=== PATIENT | female | born 1985 | race American Indian/Alaskan Native ===

== ENCOUNTER 2020-09-17 09:30 | Outpatient (CLI) | payer OTHER ==
[2020-09-17] MEDS ORDERED: LACTATED RINGERS 500 ML IV ONE (10:25)
[2020-09-17 10:38] VITALS: BP 107/57
[2020-09-17] MEDS ORDERED: TERBUTALINE 1 MG/1 ML INJ IVP NR (11:33)
[2020-09-17 11:36] LABS: Bacteria,Urine 4+ /HPF (Negative); Bilirubin,Urine NEG (Negative); Blood,Urine NEG (Negative); Color,Urine Yellow (Yellow); Mucus,Urine 3+ /HPF
== END 2020-09-17 14:20 | disposition home or self-care (01) ==
LOC: TRG 09:30 → APU 09:30 → TRG 14:20
DX: O26.893 Other specified pregnancy related conditions, third trimester (principal); R10.9 Unspecified abdominal pain; Z3A.32 32 weeks gestation of pregnancy
CPT/HCPCS: 59025; 81001; 96360; J7120

== ENCOUNTER 2020-11-04 08:29 | Inpatient (IN) | payer OTHER ==
--- NOTE | 2020-11-04 08:45 | History and Physical Report ---
History of Present Illness Date of examination: 11/04/20 Date of admission: 11/04/20 08:29 Chief complaint: elective repeat section multiparity, desires permanent sterilization [facility] Past History Past Medical History: no pertinent history, other (GDM) Past Surgical History: section Social history: no significant social history - Obstetrical History Expected Date of Delivery: 11/06/20 Actual Gestation: 39 Week(s) 5 Day(s) : 2 Para: 1 Medications and Allergies Allergies Allergy/AdvReac Type Severity Reaction Status Date / Time No Known Allergies Allergy Verified 04/10/13 00:33 Home Medications Medication Instructions Recorded Confirmed Last Taken Type Ferrous Sulfate [Iron Supplement] 1 tab PO BID 11/03/13 12/26/13 11/03/13 History 09 Vits96/Iron Fum/Folic 1 each PO QDAY 11/03/13 12/26/13 11/03/13 History [ Tablet] 0900 Ferrous Sulfate [Feosol 325 MG tab] 325 mg PO TID #90 tablet 12/28/13 Unknown Rx Ibuprofen [Motrin 800 MG tab] 800 mg PO Q8H PRN #90 tablet 12/28/13 Unknown Rx oxyCODONE /ACETAMINOPHEN [Percocet 1 tab PO Q6HR PRN #30 tablet 12/28/13 Unknown Rx 5/325 mg] Ibuprofen [Motrin] 600 mg PO Q8H PRN #60 tablet 11/04/20 Unknown Rx oxyCODONE /ACETAMINOPHEN [Percocet 1 tab PO Q6HR PRN #20 tablet 11/04/20 Unknown Rx 5/325] Active Meds: Active Medications Citric Acid/Sodium Citrate (Bicitra Oral Liqd 30ml) 30 ml PO ONCE ONE Stop: 11/04/20 08:40 Famotidine (Famotidine 20 Mg/2 Ml Inj) 20 mg IV ONCE ONE Stop: 11/04/20 08:40 Lactated Ringer's (Lactated Ringers) 1,000 mls @ 2,250 mls/hr IV PREOP CARMEN Stop: 11/05/20 09:12 Oxytocin/Sodium Chloride (Pitocin/Ns 30 Unit/500ml) 30 units in 500 mls @ 0 mls/hr IV TITR CARMEN; Protocol Metoclopramide HCl (Metoclopramide 10 Mg/2 Ml Inj) 10 mg IV ONCE ONE Stop: 11/04/20 08:40 Review of Systems All systems: negative (no OB complaint) - Physical Exam Breasts: Positive: deferred Cardiovascular: Regular rate Lungs: Positive: Clear to auscultation Abdomen: Positive: normal appearance, soft, normal bowel sounds Genitourinary (Female): Positive: normal external genitalia, normal perenium Vulva: both: normal Vagina: Positive: normal moisture Uterus: Positive: enlarged Anus/Rectum: Positive: normal perianal skin Extremities: Positive: normal Deep Tendon Reflex Grade: Normal +2 - Obstetrical FHR: category 1 Results Result Diagrams: 11/04/20 09:40 All other labs normal. Assessment and Plan Repeat section Multiparity Plan: NPO, cooperative education coordinator to OR for procedure Unique Villatoro MD
[2020-11-04] MEDS ORDERED: FAMOTIDINE 20 MG/2 ML INJ IV NR (09:00)
[2020-11-04] MEDS ORDERED: OXYTOCIN DRIP 30 UNITS/500 ML BAG IV SCH (09:00)
[2020-11-04] MEDS ORDERED: METOCLOPRAMIDE 10 MG/2 ML INJ IV NR (09:00)
[2020-11-04] MEDS ORDERED: BICITRA ORAL LIQD 30ML PO NR (09:00)
--- NOTE | 2020-11-04 09:37 | Anesthesia Day of Surgery ---
Anesthesia Day of Surgery - Day of Surgery Patient Examined: Yes Patient H&P Reviewed: Yes Patient is NPO: Yes Beta Blockers: No Cardiac Clearance: No Pulmonary Clearance: No Ruddy's Test: Negative
[2020-11-04] MEDS ORDERED: ceFAZolin/Water 2 GM/20 ML 2 GM/20 ML SYRINGE IV ONE (09:38)
--- NOTE | 2020-11-04 09:38 | Anesthesia Consultation ---
Anesthesia Consult and Med Hx Date of service: 11/04/20 - Airway Anesthetic Teeth Evaluation: Poor ROM Head & Neck: Adequate Mental/Hyoid Distance: Adequate Mallampati Class: Class II Intubation Access Assessment: Probably Good - Pulmonary Exam CTA: Yes - Cardiac Exam Cardiac Exam: RRR - Pre-Operative Health Status ASA Pre-Surgery Classification: ASA3 Proposed Anesthetic Plan: Spinal - Pulmonary Hx Smoking: No Hx Asthma: No Hx Respiratory Symptoms: No SOB: No COPD: No Home Oxygen Therapy: No Hx Pneumonia: No Hx Sleep Apnea: No - Cardiovascular System Hx Hypertension: No Hx Coronary Artery Disease: No Hx Heart Attack/AMI: No Hx Angina: No Hx Percutaneous Transluminal Coronary Angioplasty (PTCA): No Hx Cardia Arrhythmia: No Hx Pacemaker: No Hx Internal Defibrillator: No Hx Valvular Heart Disease: No Hx Heart Murmur: No Hx Peripheral Vascular Disease: No - Central Nervous System Hx Neuromuscular Disorder: No Hx Seizures: No CVA: No Hx Back Pain: Yes Hx Psychiatric Problems: No - Gastrointestinal Hx Ulcer: No Hx Gastroesophageal Reflux Disease: No - Endocrine Hx Renal Disease: No Hx End Stage Renal Disease: No Hx Cirrhosis: No Hx Liver Disease: No Hx Insulin Dependent Diabetes: No Hx Non-Insulin Dependent Diabetes: Yes (Gestational) Hx Thyroid Disease: No Hx Hypothyroidism: No Hx Hyperthyroidism: No - Hematic Hx Anemia: Yes (this , taking iron) Hx Sickle Cell Disease: No - Other Systems Hx Alcohol Use: No Hx Substance Use: No Hx Cancer: No Hx Obesity: Yes
[2020-11-04 09:52] LABS: Basophils % (Auto) 0.4 % (0.0-1.8); Eosinophils % (Auto) 0.5 % (0.0-4.3); Hematocrit 29.9 % (30.3-42.9); Hemoglobin 9.9 gm/dl (10.1-14.3); Lymphocytes # (Auto) 1.4 K/mm3 (1.2-5.4); Lymphocytes % (Auto) 25.8 % (13.4-35.0); Mean Corpuscular HGB Conc 33 % (30-34); Mean Corpuscular Volume 85 fl (79-97); Monocytes # (Auto) 0.5 K/mm3 (0.0-0.8); Monocytes % (Auto) 9.5 % (0.0-7.3); Platelet Count 213 K/mm3 (140-440); Red Blood Count 3.53 M/mm3 (3.65-5.03); Red Cell Distribution Width 14.4 % (13.2-15.2)
[2020-11-04] MEDS ORDERED: ONDANSETRON 4 MG/2 ML INJ ONE (09:53)
[2020-11-04] MEDS: LACTATED RINGERS 1,000 ML IV SCH ×2 (10:00→10:32)
[2020-11-04] MEDS ORDERED: SODIUM CHLORIDE 0.9% 500 ML 500 ML IV SCH (11:00)
--- NOTE | 2020-11-04 11:46 | Procedure Note ---
OB Delivery Note - Delivery Date of Delivery: 11/04/20 Surgeon: JESSICA ACOSTA - Section Preop diagnosis: desires sterilization Postop diagnosis: same section procedure: repeat low transverse, bilateral tubal ligation Disposition: PACU Complications: none Narrative: Preop diagnosis: IUP at 39+weeks, previous sectionx1, multiparity desires surgical sterilization Postop diagnosis: Same Procedure: Repeat low transverse section via Pfannenstiel incision with Modfied [place] Bilateral Tubal ligation Surgeon: Dr. Jessica Acosta Anesthesia spinal Complications none EBL 800 ml IV fluids 1100 mL Urine output 200 mL, clear Drains [place] to gravity Findings: Viable male with weight 3202gms and 9/9, normal uterus tubes and ovaries bilaterally Procedure: Patient was consented in OB triage, taken to the operating room where she received excellent spinal anesthesia. She was then placed in the dorsal supine position with a leftward tilt. The abdomen was prepped and draped in a sterile fashion, and a timeout was verified. Adequate anesthesia was confirmed prior to the skin incision. A Pfannenstiel skin incision was made with a scalpel taken down to the underlying structures and the fascia was incised in the midline. The incision was extended laterally with curved Judd scissors, the superior and inferior aspects of the fascial incisions were grasped with Sae clamps and the rectus muscles dissected sharply. The abdomen was entered bluntly in the midline carried down inferiorly with good visualization of the bladder. The uterine incision was then made sharply with a scalpel. The inferior and superior aspect of the uterine incisions were extended bluntly, the baby's head was delivered atraumatically. The remainder of the delivery was uncomplicated, no nuchal cord. The cord was clamped and cut and baby handed to waiting NICU team. An intact placenta with three-vessel cord delivered manually. The uterus was then cleared of all clots and debris and the uterus exteriorized. The uterine incision was closed in 2 layers of 0 vicryl with excellent hemostasis. Attention then turned to the fallopian tubes which were suture ligated with )-Chromic in the usual fashion with excellent hemostasis. The abdomen was then irrigated with warm normal saline and the uterus placed back into the abdomen atraumatically. A second look at the uterine incision assured hemostasis. The peritoneum was closed with 3-0 Vicryl, the rectus muscles approximated with 3-0 Vicryl, and the fascia closed with 0 Vicryl in the usual fashion. The subcuticular structures were closed with interrupted sutures of 3-0 Vicryl and the skin closed with 4-0 Monocryl. A pr essure dressing was applied. All sponge needle and instrument counts were correct x2. There were no complications. Mom and baby stable to PACU. EBL 800 mL Unique Acosta MD
[2020-11-04] MEDS ORDERED: WATER FOR IRRIG STERILE 1,500 ML BOTTLE IR ONE (11:52)
[2020-11-04] MEDS ORDERED: SODIUM CHLORIDE 0.9% IRR 1,500 ML BOTTLE IR ONE (11:52)
[2020-11-04] MEDS ORDERED: dexAMETHasone 20 MG/5 ML VIAL ONE (12:19)
[2020-11-04] MEDS ORDERED: KETOROLAC 30 MG/1 ML INJ ONE (12:19)
[2020-11-04] MEDS ORDERED: BUPIVACAINE/PF (0.25%) 2.5 MG/ML 30 ML VIAL INFILTRATI ONE (12:19)
--- NOTE | 2020-11-04 13:18 | Progress Note ---
Spinal Anesthesia Block - Spinal Anesthesia Block Start Time: 11:30 Stop Time: 11:33 Performed by:: LIANNA GRIFFITH Procedure: Patient IDed, H&P reviewed, all questions and concerns were answered, and consent was signed. Timeout was performed at bedside. Patient in sitting position. Sterile prep and drape was performed. [3] ml of 1% lidocaine skin wheal at L[3]- L [4]. Needle introducer advanced. 25 gauge spinal needle advanced. Clear, free flowing CSF. negative blood, negative paresthesia. Spinal dose given. All needles removed. Patient tolerated procedure.
--- NOTE | 2020-11-04 13:20 | Progress Note ---
Regional Anesthesia Block - Regional Anesthesia Block Start Time: 13:18 Stop Time: 13:20 Performed By:: LIANNA GRIFFITH Procedure: Patient consented for TAP block for post surgical pain management. Patient identified, monitors placed, and time out performed. TAP identified bilaterally via ultrasound. Skin prepped bilaterally with [chlorhexidine] and [22g stimuplex] needle advanced to the TAP. [Marcaine 0.25% 35ml] injected under ultrasound guidance on the [left] side. [Marcaine 0.25% 35ml] injected under ultrasound guidance on the [right] side. Negative aspiration every 5mL, No change in heart rate or rhythm. Patient tolerated the procedure well. No apparent complications seen.
[2020-11-04] MEDS ORDERED: MORPHINE 2 MG/1 ML INJ IV PRN ×2 (13:30→14:30)
[2020-11-04] MEDS ORDERED: ePHEDrine SULFATE 50 MG/1 ML INJ IV PRN (14:00)
[2020-11-04] MEDS ORDERED: KETOROLAC 30 MG/1 ML INJ IV PRN ×2 (14:00→14:30)
[2020-11-04] MEDS ORDERED: MORPHINE 4 MG/1 ML INJ IV PRN (14:30)
[2020-11-04] MEDS ORDERED: WITCH HAZEL/ GLYCERIN PAD TP PRN (14:30)
[2020-11-04] MEDS ORDERED: IBUPROFEN 600 MG TAB PO PRN (14:30)
[2020-11-04] MEDS ORDERED: NALOXONE 0.4 MG/1 ML INJ IV PRN (15:00)
[2020-11-04] MEDS ORDERED: LANOLIN/ZINC/DIMETHICONE (LANSINOH) 7 GM TP PRN (15:00)
--- NOTE | 2020-11-04 17:22 | Post Anesthesia Evaluation ---
- Post Anesthesia Evaluation Patient Participated: Yes Airway Patent: Yes Stable Respiratory Function: Yes Nausea/Vomiting: No Temp > 96.8F: Yes Pain Manageable: Yes Adequeate Hydration: Yes Anesthesia Complications: No Block Receding Appropriately: Yes Patient on Ventilator: No
[2020-11-05 03:40] LABS: Hematocrit 26.4 % (30.3-42.9); Hemoglobin 8.7 gm/dl (10.1-14.3)
[2020-11-05] MEDS: HYDROcodone/ACETAMINOPHEN 5-325 MG TAB PO PRN ×2 (08:30→18:07)
--- NOTE | 2020-11-05 10:01 | Progress Note ---
Assessment and Plan A: S/P Repeat LTCS/BTL Asymptomatic anemia P: Continue routine pp orders Fe prescribed Advise foods high in Fe Encourage ambulation D/C home within 24-48 hrs Subjective - Subjective Date of service: 11/05/20 Principal diagnosis: S/P repeat LTCS Patient reports: appetite normal, voiding normally, pain well controlled, flatus, ambulating normally, other (DENIES SOB, FATIGUE OR WEAKNESS) Objective - Vital Signs Latest vital signs: Vital Signs Temp Pulse Resp BP BP Pulse Ox Pulse Ox 11/05/20 08:20 98.0 F 84 18 95/64 100 11/05/20 07:50 100 11/05/20 04:36 98.1 F 74 18 93/50 99 11/05/20 01:59 97.9 F 74 18 101/63 100 11/04/20 22:41 100 11/04/20 21:45 97.6 F 83 18 101/62 97 11/04/20 17:40 100 11/04/20 14:50 98.3 F 81 20 101/63 100 11/04/20 14:10 97.7 F 80 18 100/63 97 11/04/20 14:00 77 17 97/57 97 11/04/20 13:45 78 15 90/56 97 11/04/20 13:30 82 16 88/50 97 11/04/20 13:16 83 16 102/78 97 11/04/20 13:12 84 16 81/63 97 11/04/20 13:08 98 F 82 16 113/69 97 11/04/20 11:05 99 H 100 11/04/20 11:00 97 H 100 11/04/20 10:55 91 H 100 11/04/20 10:50 99 H 100 11/04/20 10:43 89 100 11/04/20 10:38 93 H 100 11/04/20 10:33 88 100 11/04/20 10:32 95 H 105/61 11/04/20 10:28 95 H 100 11/04/20 10:23 97 H 100 11/04/20 10:18 91 H 100 11/04/20 10:15 100 11/04/20 10:13 94 H 100 11/04/20 10:08 95 H 100 11/04/20 10:03 91 H 100 11/04/20 10:02 98.5 F 91 H 18 107/68 100 Intake and Output 11/04/20 11/05/20 11/05/20 22:59 06:59 14:59 Intake Total 240 240 Output Total 600 1450 Balance -360 -1210 Intake: Intake, Free Water 240 240 Output: Urine 600 1450 Indwelling Catheter 600 1000 Void 450 Other: Total, Output Amount 600 300 - Exam Breasts: Present: normal Abdomen: Present: normal appearance, soft, normal bowel sounds Vulva: both: normal Uterus: Present: normal, firm, fundal height below umbilicus Extremities: Present: normal Incision: Present: normal, dry, intact, dressed - Labs Labs: Abnormal lab results 11/04/20 11/05/20 Range/Units 09:40 03:18 Hgb 8.7 L (10.1-14.3) gm/dl Hct 26.4 L (30.3-42.9) % Crossmatch See Detail
[2020-11-05] MEDS: IBUPROFEN 800 MG TAB PO PRN ×2 (12:00→21:54)
[2020-11-05] MEDS ORDERED: ceFAZolin/STERILE WATER 2 GM/20 ML SYRINGE IV NR (12:00)
[2020-11-05] MEDS: FERROUS SULFATE 325 MG TAB PO SCH ×2 (12:34→21:55)
--- NOTE | 2020-11-06 10:04 | Progress Note ---
Assessment and Plan A: S/P Repeat LTCS/BTL P: D/C home per pt's request Subjective - Subjective Date of service: 11/06/20 Principal diagnosis: Repeat LTCS/BTL Patient reports: appetite normal, voiding normally, pain well controlled, flatus, ambulating normally [place]: doing well, bottle feeding Objective - Vital Signs Latest vital signs: Vital Signs Temp Pulse Resp BP BP Pulse Ox Pulse Ox 11/06/20 08:09 98.1 F 82 16 102/61 100 11/06/20 00:30 98.6 F 74 16 102/78 11/05/20 20:29 97.4 F L 84 18 100/58 99 11/05/20 20:00 100 11/05/20 17:11 98.1 F 85 18 101/62 98 Intake and Output 11/05/20 11/06/20 11/06/20 22:59 06:59 14:59 Intake Total 300 200 240 Balance 300 200 240 Intake: Oral 200 240 Intake, Free Water 300 Other: Total, Intake Amount 200 240 # Voids Void 1 1 1 - Exam Breasts: Present: normal Abdomen: Present: normal appearance, soft, normal bowel sounds Vulva: both: normal Uterus: Present: normal, firm, fundal height below umbilicus Extremities: Present: normal Incision: Present: normal, dry, intact
--- NOTE | 2020-11-06 10:07 | Discharge Summary ---
Providers - Providers Date of Admission: 11/04/20 08:29 Date of discharge: 11/06/20 Attending physician: JESSICA ACOSTA MD Primary care physician: MAK DALTON MD Hospitalization Reason for admission: section Delivery: Procedure: repeat low transverse Episiotomy: none Laceration: none Incision: normal, dry, intact Other procedures: none complications: other (Taking Fe for anemia) Discharge diagnosis: IUP at term delivered baby: male Hospital course: Pt was admitted to [facility] for a repeat LTCS. She had a LTCS and was started on fe pp for asymptomatic anemia. See H&P, delivery summary, and pp notes. Condition at discharge: Stable Disposition: 01 HOME / SELF CARE / HOMELESS Plan - Discharge Medications Prescriptions: Ibuprofen [Motrin] 600 mg PO Q8H PRN #60 tablet PRN Reason: Pain oxyCODONE /ACETAMINOPHEN [Percocet 5/325] 1 tab PO Q6HR PRN #20 tablet PRN Reason: Pain - Provider Discharge Summary Activity: routine, no sex for 6 weeks, no heavy lifting 4 weeks, no strenuous exercise Diet: other (high Fe diet) Instructions: routine Additional instructions: [] Smoking cessation referral if applicable(refer to patient education folder for contact #) [] Refer to [facility]'s [facility] Booklet Call your doctor immediately for: * Fever > 100.5 * Heavy vaginal bleeding ( >1 pad per hour) * Severe persistent headache * Shortness of breath * Reddened, hot, painful area to leg or breast * Drainage or odor from incision. * Keep incision clean and dry at all times and follow doctor's instructions regarding bathing/showering - Follow up plan Follow up: MAK DALTON MD [Primary Care Provider] - 14 Days
[2020-11-06] MEDS: IBUPROFEN 800 MG TAB PO PRN ×2 (10:20→15:13)
[2020-11-06] MEDS: FERROUS SULFATE 325 MG TAB PO SCH (10:20)
[2020-11-06 16:17] VITALS: BP 109/61
== END 2020-11-06 16:39 | disposition home or self-care (01) | DRG 784 ==
LOC: APU 08:29 → OB 15:24
PROVIDERS: ADMIT Obstetrics & Gynecology; ATTEND Obstetrics & Gynecology
PROC: 0UB70ZZ Excision of Bilateral Fallopian Tubes, Open Approach (ICD-10-PCS; principal; 2020-11-04)
PROC: 10D00Z1 Extraction of Products of Conception, Low, Open Approach (ICD-10-PCS; 2020-11-04)
PROC: 3E0T3BZ Introduction of Anesthetic Agent into Peripheral Nerves and Plexi, Percutaneous Approach (ICD-10-PCS; 2020-11-04)
DX: O34.211 Maternal care for low transverse scar from previous cesarean delivery (principal); D62 Acute posthemorrhagic anemia; Z3A.39 39 weeks gestation of pregnancy; Z37.0 Single live birth; O99.02 Anemia complicating childbirth; O99.214 Obesity complicating childbirth; Z20.822 Contact with and (suspected) exposure to COVID-19; Z30.2 Encounter for sterilization
CPT/HCPCS: 36415; 85014; 85018; 85025; 86850; 86900; 86901; 86920; 88302; G0378; J1100; J1885; J2270; J2405; J2765; J3490; J7120; U0003